=== PATIENT | male | born 1945 | race Caucasian/White ===

== ENCOUNTER 2016-12-11 11:34 | Emergency (ER) | payer MEDICARE, OTHER ==
[2016-12-11] MEDS ORDERED: SODIUM CHLORIDE 0.9% 1,000 ML IV ONE (13:19)
[2016-12-11] MEDS ORDERED: AZITHROMYCIN 250 MG TABLET PO STA (14:29)
[2016-12-11] MEDS ORDERED: AZITHROMYCIN 250 MG TABLET PO ONE (14:36)
== END 2016-12-11 14:44 | disposition home or self-care (01) ==
DX: R41.0 Disorientation, unspecified (principal); E86.0 Dehydration; T50.905A Adverse effect of unspecified drugs, medicaments and biological substances, initial encounter; J18.1 Lobar pneumonia, unspecified organism; I10 Essential (primary) hypertension
CPT/HCPCS: 36415; 71020; 80053; 81003; 83690; 83735; 85025; 99283; 99284; A9270

== ENCOUNTER 2017-02-02 12:27 | Outpatient (CLI) | payer MEDICARE ==
--- NOTE | 2017-02-02 14:37 | MRI Report ---
EXAM: MRI BRAIN WITHOUT CONTRAST EXAM DATE: 02/02/2017 01:15 PM. CLINICAL HISTORY: 71-year-old with history of pneumonia 2 months ago presenting with progressive renata ry loss and confusion COMPARISON: None. TECHNIQUE: Multiplanar, multisequence T1-weighted and fluid-sensitive MR sequences of the brain were performed. Sequences optimized for routine evaluation. Other: None. IV Contrast: None. FINDINGS: Brain Volume: Mild to moderate cortical volume loss Parenchyma/Dura: There is area of DWI signal hyperintensity seen within the posterior left frontal lo be (series 505, image 136) with no corresponding ADC signal hypointensity. There is associated T2/FLA IR signal hyperintensity at this level. No other areas of restricted diffusion seen to suggest acute infarct. There are moderate areas of encephalomalacia involving the left frontal lobe, left frontal o perculum, and right frontal operculum. Small area of encephalomalacia involving the right occipital l obe. There is moderate bilateral areas of T2/FLAIR signal hyperintensity seen. Old lacunar infarcts a re seen involving the left parietal centrum semiovale, left peguero radiata, right coronal radiata, bi lateral posterior christofer, and right thalamus. There is susceptibility artifact seen within the left charles s may represent old hemorrhagic blood products. No additional areas of abnormal parenchymal susceptib ility artifact seen. Pituitary: Normal. Ventricles/Cisterns: No abnormal extra-axial fluid collection/mass seen. There is ex echo dilatation of the frontal horn left lateral ventricle and body of left lateral ventricle. No evidence of hydroce phalus. Cisterns are patent. Fluid is seen within Meckel's caves. Visualized internal auditory canals appear clear. Sinuses: The visualized paranasal sinuses demonstrate minimal mucosal thickening of ethmoid air cells . Mastoid air cells and middle ear cavities are clear. Orbits: Normal. Bones: Normal. Other: The right intradural vertebral artery flow-void is not visualized. This may represent congenit al hypoplasia or chronic thrombosis. Otherwise the visualized major intracranial flow voids are maint ained. IMPRESSION: 1. No convincing evidence of acute infarct, intracranial hemorrhage, mass, or hydrocephalus. 2. Moderate areas of encephalomalacia involving the left frontal lobe, left temporal operculum, and r ight frontal operculum. Findings may be secondary to old chronic infarcts. 3. Small area of encephalomalacia involving the right occipital lobe. Finding may be secondary to old chronic infarct. 4. Moderate white matter changes including old chronic lacunar infarcts that likely represent sequela of chronic small vessel ischemic disease. 5. The right intradural vertebral artery flow-void is not visualized. This may represent congenital h ypoplasia or chronic thrombosis. If clinically indicated this finding can be further investigated wit h a CTA head and neck or MRA head and neck. RADIA The above findings were discussed with provider Vish Guillaume by Dr. Jamil Clay at 14 :32 hrs on 02/02/17. Referring Provider Line: [phone] SITE ID: [id number]
== END 2017-02-02 12:28 | disposition home or self-care (01) ==
LOC: DI 12:27
PROVIDERS: ATTEND Family Medicine
DX: G93.89 Other specified disorders of brain (principal); Z86.73 Personal history of transient ischemic attack (TIA), and cerebral infarction without residual deficits
CPT/HCPCS: 70551

== ENCOUNTER 2018-06-24 08:18 | Emergency (ER) | payer MEDICARE ==
[2018-06-24] MEDS ORDERED: IOPAMIDOL-300 100 ML VIAL ONE (08:33)
--- NOTE | 2018-06-24 08:46 | ED Physician Documentation ---
History of Present Illness - Stated complaint Stated Complaint: STROKE LIKE SX - Chief complaint Chief Complaint: Neuro - Additonal information Additional information: hx from pt and and EMR 73 male hx HTN and depression also prior MRI showing numerous prior infarcts encephalomalacia and R vertebral artery flow void - angio head and neck was recommended but does not know if that was done no blood thinners describes long time progressive diff with gait, small shuffling step, slow gait this AM he was up and about at his baseline and he froze holding on to the door and unable to move at all for several minutes she was eventually able to assist him to the chair he had no focal numbness weakness or speech abn or vision loss no recent falls no [employer] CP AP BP no fever cough NVD urinary sx no recent med changes Review of Systems Constitutional: denies: Fever, Chills Eyes: denies: Decreased vision Ears: denies: Loss of hearing, Ear pain Throat: denies: Sore throat Cardiac: denies: Chest pain / pressure, Palpitations Respiratory: denies: Dyspnea, Cough GI: denies: Abdominal Pain, Nausea, Vomiting, Diarrhea : denies: Dysuria Neurologic: reports: Generalized weakness. denies: Focal weakness, Numbness, Difficulty speaking, Syncope, Seizure, Altered mental status, Headache, Head injury Endocrine: denies: Easy bruising / bleeding Immunocompromised: denies: Immunocompromised PD PAST MEDICAL HISTORY - Past Medical History Cardiovascular: Hypertension - Past Surgical History Past Surgical History: Yes - Present Medications Home Medications: Ambulatory Orders Medication Instructions Recorded Confirmed Aspirin Chewable [[place] 81 mg PO DAILY 06/24/18 06/24/18 Aspirin] Atenolol/Chlorthalidone 1 each PO 06/24/18 [Atenolol-Chlorthal 50-25 Tb] Citalopram [CeleXA] 20 mg PO DAILY 06/24/18 06/24/18 Donepezil [Aricept] 5 mg PO DAILY 06/24/18 06/24/18 Lovastatin 40 mg PO 06/24/18 [place]-3/Dha/Epa/Fish Oil [Fish Oil 1 each PO 06/24/18 06/24/18 1,000 mg Softgel] - Allergies Allergies/Adverse Reactions: Allergies Allergy/AdvReac Type Severity Reaction Status Date / Time No Known Drug Allergies Allergy Verified 06/24/18 08:30 - Social History Does the pt smoke?: Yes Smoking Status: Current every day smoker Does the pt drink ETOH?: No Does the pt have substance abuse?: No - Immunizations Immunizations are current?: Yes PD ED PE NORMAL - Vitals Vital signs reviewed: Yes (normal) - General General: Alert and oriented X 3 - HEENT HEENT: Atraumatic, PERRL, EOMI - Neck Neck: Supple, no meningeal sign - Cardiac Cardiac: RRR - Respiratory Respiratory: No respiratory distress, Clear bilaterally - Abdomen Abdomen: Soft, Non tender - Derm Derm: Normal color - Extremities Extremities: No deformity - Neuro Neuro: Alert and oriented X 3, electric range servicer 2-12 intact, No motor deficit, No sensory deficit, Normal speech, Other (NIHSS at 0840 was zero, finger-nose and heel-chacon were normal bilaterally) Eye Opening: Spontaneous Motor: Obeys Commands Verbal: Oriented GCS Score: 15 Results - Vitals Vitals: Vital Signs - 24 hr 06/24/18 06/24/18 06/24/18 08:23 10:13 10:40 Temperature 36.6 C Heart Rate 93 91 91 Respiratory 21 15 18 Rate Blood Pressure 123/59 L 95/56 L 107/53 L O2 Saturation 98 96 97 06/24/18 11:15 Temperature 37.7 C H Heart Rate 87 Respiratory 17 Rate Blood Pressure O2 Saturation 97 Oxygen O2 Source Room air - EKG (time done) 0850 Rate: Rate (enter#) Rhythm: NSR, Other (best seen in II and V3 appears to be NSR with 1st degree block and prolonged QT) Intervals: 1st degree AVB, Prolonged QT Ischemia: Non specific changes Compare to prior EKG: Old EKG unavailable - Labs Labs: Laboratory Tests 06/24/18 06/24/18 06/24/18 08:31 08:46 08:46 WBC 12.6 H RBC 4.92 Hgb 15.0 Hct 43.9 MCV 89.3 MCH 30.5 MCHC 34.1 RDW 13.4 Plt Count 195 MPV 7.2 L Neut # (Auto) 11.9 H Lymph # (Auto) 0.5 L Morton # (Auto) 0.3 Eos # (Auto) 0.0 Baso # (Auto) 0.0 Absolute Nucleated RBC 0.00 Nucleated RBC % 0.0 Sodium 138 Potassium 3.3 L Chloride 97 L Carbon Dioxide 28 Anion Gap 13.0 BUN 23 H Creatinine 1.2 Estimated GFR (MDRD) 59 L Glucose 114 H POC Whole Bld Glucose 107 H Calcium 9.9 Troponin I Urine Color Urine Clarity Urine pH Ur Specific Loop Urine Protein Urine Glucose (UA) Urine Ketones Urine Occult Blood Urine Nitrite Urine Bilirubin Urine Urobilinogen Ur Leukocyte Esterase Ur Microscopic Review Urine Culture Comments 06/24/18 06/24/18 08:46 09:35 WBC RBC Hgb Hct MCV MCH MCHC RDW Plt Count MPV Neut # (Auto) Lymph # (Auto) Morton # (Auto) Eos # (Auto) Baso # (Auto) Absolute Nucleated RBC Nucleated RBC % Sodium Potassium Chloride Carbon Dioxide Anion Gap BUN Creatinine Estimated GFR (MDRD) Glucose POC Whole Bld Glucose Calcium Troponin I < 0.04 Urine Color DARK YELLOW Urine Clarity CLEAR Urine pH 7.[address] 1.015 Urine Protein NEGATIVE Urine Glucose (UA) NEGATIVE Urine Ketones NEGATIVE Urine Occult Blood NEGATIVE Urine Nitrite NEGATIVE Urine Bilirubin NEGATIVE Urine Urobilinogen 0.2 (NORMAL) Ur Leukocyte Esterase NEGATIVE Ur Microscopic Review NOT INDICATED Urine Culture Comments NOT INDICATED - Rads (name of study) CTH Radiology: See rad report (eddie frontal old infarcts L > R, no acute infarct, no bleed) CTA brain Radiology: See rad report (unremarkable, no aneurysm thrombosis or stenosis, dominant L vertebral, R vertebral is small caliber but not obstructed) CT neck Radiology: See rad report (mod to marked atherosclerosis arch and great vessels, mild to CCA bifurcation, KING 25% LICA 50%, dominant L vertebral, small R vertebral but patent) PD MEDICAL DECISION MAKING - ED course ED course: sx better CTH no acute bleed CT in general limited for acute infarct and cornelia for posterior regions (pt sx is ataxia) but since sx are better do not feel MRI emergenct no reversible cause for TIA CVA found - NRS not a fib so do not think needs emergenct echo, atherosclerosis but not > 50%, no aneurym AVM thrombosis etc honestly his sx sound like parkinsons as much as a TIA in any case he feels better his work up is reassuring he was able to road test with a walker s difficulty will dc to fup with PMD for neuro referral Departure - Departure Disposition: 01 Home, Self Care Clinical Impression: Ataxia, Prolonged QT interval Condition: Good Instructions: Dizziness Balance Probs Fainting Follow-Up: Vish Guillaume MD [Primary Care Provider] - Comments: The CT scans of your brain and neck showed old strokes - but no new strokes. Also no bleeding or tumors. You do have atherosclerosis plaque build up in some of the major neck arteries but none are dangerously blocked at this time. And your heart was in a regular rhythm for many hours making embolic blood clots from your heart to the brain unlikely Your labs were fine too. And your symptoms have resolved I am not sure if this was a TIA or not - the balance part of the brain in the back of the head and can be difficult to image even with a CT scan. Many of the chronic symptoms you describe are concerning for Parkinson's disease - I suggest you have your PMD refer you to a neurologist for further evaluation Also your EKG today showed some electric delays - one is called a prolonged QT and it is important that you remember this as one of your medical problems because future providers need to be very careful what medication they prescribe for you or this could be made worse and cause a serious heart arrhythmia Please use a walker when moving about to help prevent any falls Discharge Date/Time: 06/24/18 11:57
[2018-06-24 08:53] LABS: BASOPHILS % (AUTO) 0.1 %; LYMPHOCYTES # (AUTO) 0.5 10^3/uL (1.5-3.5); LYMPHOCYTES % (AUTO) 3.7 %; MEAN CORPUSCULAR HEMOGLOBIN 30.5 pg (27.0-31.0); MEAN CORPUSCULAR HGB CONC 34.1 g/dL (32.0-36.0); MEAN CORPUSCULAR VOLUME 89.3 fL (80.0-94.0); MEAN PLATELET VOLUME 7.2 fL (7.4-11.4); MONOCYTES # (AUTO) 0.3 10^3/uL (0.0-1.0); MONOCYTES % (AUTO) 2.1 %; NEUTROPHILS # (AUTO) 11.9 10^3/uL (1.5-6.6); NEUTROPHILS % (AUTO) 94.1 %; PLT - PLATELET COUNT 195 10^3/uL (130-450); RED BLOOD COUNT 4.92 10^6/uL (4.70-6.10); RED CELL DISTRIBUTION WIDTH 13.4 % (12.0-15.0); WHITE BLOOD COUNT 12.6 x10^3/uL (4.8-10.8)
[2018-06-24 09:02] LABS: CALCIUM 9.9 mg/dL (8.5-10.3); CREATININE 1.2 mg/dL (0.6-1.2)
[2018-06-24] MEDS ORDERED: IOPAMIDOL-300 100 ML VIAL IVP ONE (09:43)
--- NOTE | 2018-06-24 09:46 | CT Report ---
Reason: ataxia Procedure Date: 06/24/2018 Accession Number: [id number] / [id number] Procedure: CT - Head W/O Stroke Protocol CPT Code: FULL RESULT: EXAM: CT HEAD EXAM DATE: 06/24/2018 09:11 AM. CLINICAL HISTORY: Ataxia. COMPARISON: Brain without contrast 02/02/2017 1:25 PM. TECHNIQUE: Multiaxial CT images were obtained from the foramen magnum to the vertex. Reformats: Sagittal and coronal. IV contrast: None. In accordance with CT protocol optimization, one or more of the following dose reduction techniques were utilized for this exam: automated exposure control, adjustment of mA and/or KV based on patient size, or use of iterative reconstructive technique. FINDINGS: Parenchyma: Cystic encephalomalacia is seen in the lateral frontal lobes bilaterally greater on the left. This is consistent with sequela of old infarct. This is unchanged. Extraaxial Spaces: Normal for age. No subdural or epidural collections identified. Ventricles: Normal in size and position. Sinuses and Orbits: Imaged paranasal sinuses, orbits, and mastoids show no significant abnormality. Bones: No evidence of fracture or calvarial defect. Other: None. IMPRESSION: 1. No acute intracranial abnormality. 2. Cystic encephalomalacia in the lateral frontal lobes bilaterally, greater on the left. This is consistent with sequela of old infarct. This is unchanged. Critical test: Findings are discussed with referring ER physician on 06/24/2018 at 0943 hrs. RADIA
[2018-06-24 10:17] LABS: BILIRUBIN,URINE NEGATIVE (NEGATIVE); GLUCOSE, URINE (UA) NEGATIVE (NEGATIVE); KETONES,URINE (UA) NEGATIVE (NEGATIVE); LEUKOCYTE ESTERASE, URINE NEGATIVE (NEGATIVE); NITRITE,URINE NEGATIVE (NEGATIVE); OCCULT BLOOD,URINE NEGATIVE (NEGATIVE); PROTEIN,URINE NEGATIVE (NEGATIVE); UROBILINOGEN,URINE 0.2 (NORMAL) E.U./dL (NORMAL)
[2018-06-24 10:28] LABS: CLARITY,URINE CLEAR (CLEAR)
--- NOTE | 2018-06-24 11:15 | CT Report ---
Reason: neuro sx, ataxia, abn prior MRI, angio rec Procedure Date: 06/24/2018 Accession Number: [id number] / [id number] Procedure: CT - Head Angio CPT Code: FULL RESULT: EXAM: CT ANGIOGRAM HEAD AND NECK. CT SCAN HEAD WITH CONTRAST. EXAM DATE:06/24/2018 09:11 AM. CLINICAL HISTORY:Neuro sx, ataxia, abn prior MRI, angio rec. COMPARISON:CT scan of the head without contrast same time 06/24/2018. CT scan of the head 02/02/2017. TECHNIQUE: Routine axial helical CTA imaging was performed from the aortic arch through the [place] of [place]. Routine axial CT imaging of the head was performed following contrast administration. Reconstructions: Routine multiplanar 3D MIP reconstructions. IV contrast: Isovue 300 80 mL. NASCET Criteria are used for stenosis measurements. In accordance with CT protocol optimization, one or more of the following dose reduction techniques were utilized for this exam: automated exposure control, adjustment of mA and/or KV based on patient size, or use of iterative reconstructive technique. FINDINGS: CT SCAN HEAD POSTCONTRAST: (See report of noncontrast CT scan of the head performed same time.) No abnormal intracranial enhancement. CT ANGIOGRAM EXTRACRANIAL CIRCULATION: Moderate tortuosity and marked calcification of the aortic arch is evident. Moderate tortuosity and calcification of the great vessels off the arch is seen. 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 Great vessels are patent and unremarkable. Right Carotid: The common carotid, internal carotid, and external carotid arteries are widely patent. No dissection. Moderate atherosclerotic calcification is seen in the CCA bifurcation and proximal ICA. Mild, 25%, stenosis is seen in the post bulbar ICA. Left Carotid: The common carotid, internal carotid, and external carotid arteries are widely patent. No dissection. Moderate atherosclerotic calcification is seen in the CCA bifurcation and proximal ICA moderate, 50%, stenosis is seen in the post bulbar ICA. Vertebrals: The vertebrobasilar system shows no stenosis, dissection, aneurysm, or significant atherosclerotic disease. The left vertebral artery is dominant, almost the same caliber as the ICA. The right vertebral artery is pinpoint and diffusely small in caliber. CT ANGIOGRAM INTRACRANIAL CIRCULATION: Unremarkable No significant stenoses or aneurysms of the visualized vessels. Mild tortuosity and calcification of the cavernous and proximal supracavernous ICA is seen bilaterally. The left vertebral artery is dominant forming the basilar artery. The left PICA arises from the distal V4 segment and is dominant and unremarkable. The right vertebral artery is small in caliber and terminates as a small caliber right PICA. The basilar artery and bifurcation is patent and unremarkable. Note is made of a small, 1.4 mm, infundibulum seen in the C7 supracavernous segment of the left ICA. This is proximal to the anterior choroidal artery and consistent with P-comm artery origin. The left P-comm is not well seen. Dural sinuses are not well evaluated on CT angiogram due to timing of contrast bolus. Dural sinuses are patent on postcontrast head CT. Other: Mild diffuse scattered interstitial bullous changes seen in the visualized upper lung zones. No consolidation. The muscle and fascial planes of the neck are unremarkable. No lytic or blastic bony lesions are seen. Mild to moderate spondylosis is noted throughout the cervical spine. IMPRESSION: CT SCAN HEAD POSTCONTRAST: (See report of noncontrast CT scan of the head performed same time.) 1. No abnormal intracranial enhancement. CT ANGIOGRAM NECK: 1. Moderate to marked atherosclerotic tortuosity and calcification involving the aortic arch and great vessels off the arch. 2. Mild atherosclerotic change in the CCA bifurcation bilaterally. -Right ICA with mild, 25%, stenosis in the post bulbar region. -Left ICA with moderate, 50%, stenosis in the post bulbar region. 3. The left vertebral artery is dominant forming the basilar artery. Left vertebral artery has its origin off the aortic arch. 4. The right vertebral artery is diffusely small in caliber throughout its course and likely terminates as small caliber right PICA. CT ANGIOGRAM HEAD: 1. Unremarkable CTA of the head. No aneurysm. No significant stenosis. 2. The left vertebral artery is dominant forming the basilar artery. 3. The right vertebral artery is small in caliber and likely terminates as small caliber right PICA. Critical test: Findings are discussed with referring treating physician on 06/24/2018 at 1103 hrs. RADIA
[2018-06-24 11:30] VITALS: BP 107/53
== END 2018-06-24 11:57 | disposition home or self-care (01) ==
LOC: ED 08:18
DX: R27.0 Ataxia, unspecified (principal); I45.81 Long QT syndrome; I44.0 Atrioventricular block, first degree; I25.2 Old myocardial infarction; I10 Essential (primary) hypertension; I70.8 Atherosclerosis of other arteries; Z79.82 Long term (current) use of aspirin; F17.200 Nicotine dependence, unspecified, uncomplicated
CPT/HCPCS: 36415; 70450; 70496; 70498; 80048; 81003; 84484; 85025; 93005; 99284; Q9967; 81001; 87086

== ENCOUNTER 2018-07-11 08:00 | Outpatient (CLI) | payer MEDICARE ==
[2018-07-11 15:12] LABS: BASOPHILS # (AUTO) 0.1 10^3/uL (0.0-0.1); BASOPHILS % (AUTO) 0.8 %; EOSINOPHILS # (AUTO) 0.1 10^3/uL (0.0-0.7); EOSINOPHILS % (AUTO) 1.3 %; HGB - HEMOGLOBIN 10.6 g/dL (14.0-18.0); LYMPHOCYTES # (AUTO) 1.4 10^3/uL (1.5-3.5); LYMPHOCYTES % (AUTO) 18.4 %; MEAN CORPUSCULAR HEMOGLOBIN 30.3 pg (27.0-31.0); MEAN CORPUSCULAR HGB CONC 34.3 g/dL (32.0-36.0); MEAN CORPUSCULAR VOLUME 88.5 fL (80.0-94.0); MEAN PLATELET VOLUME 7.9 fL (7.4-11.4); MONOCYTES # (AUTO) 0.4 10^3/uL (0.0-1.0); MONOCYTES % (AUTO) 5.7 %; NEUTROPHILS # (AUTO) 5.8 10^3/uL (1.5-6.6); NEUTROPHILS % (AUTO) 73.8 %; PLT - PLATELET COUNT 433 10^3/uL (130-450); RED BLOOD COUNT 3.51 10^6/uL (4.70-6.10); RED CELL DISTRIBUTION WIDTH 14.1 % (12.0-15.0); WHITE BLOOD COUNT 7.8 x10^3/uL (4.8-10.8)
[2018-07-11 18:35] LABS: CALCIUM 8.4 mg/dL (8.5-10.3); CREATININE 1.2 mg/dL (0.6-1.2)
== END 2018-07-11 08:01 | disposition home or self-care (01) ==
LOC: LAB.R 08:00
DX: R79.89 Other specified abnormal findings of blood chemistry (principal); R78.81 Bacteremia
CPT/HCPCS: 80048; 85025

== ENCOUNTER 2018-07-17 21:37 | Outpatient (CLI) | payer MEDICARE | END 2018-07-17 23:59 | disposition home or self-care (01) | LOC: LAB.R 21:37 | PROVIDERS: ATTEND Family Medicine | DX: A04.72 Enterocolitis due to Clostridium difficile, not specified as recurrent (principal) | CPT/HCPCS: 87493 ==

== ENCOUNTER 2018-07-22 15:00 | Outpatient (CLI) | payer MEDICARE ==
--- NOTE | 2018-07-22 15:06 | CONSULTATION NOTE ---
Palliative Care Consultation - Referral Referring Provider: Ez Rainey Time of Visit: 07/22/2018. 10:40 - 12:10 Referral setting: Home (Seen in home setting due to taxing and considerable effort required to leave the home secondary to declining functionality and limited mobility, etiology unknown.) Referral Reason: Debility - Information Sources Records reviewed: Previous records reviewed History/Review of Systems obtained from: Patient, Family Exam limitations: Clinical condition (cognitive, short-term memory deficits) - History of Present Illness Brief History of Present Illness: Thank you, Dr. Guillaume, for asking the palliative care consult service to be involved in the care of your patient. I am asked to provide support regarding a recent decline in functional status and advance care planning. 73-year-old man with a history of HTN and depression, h/o CVA, and chronic symptoms concerning for Parkinson's disease. He was hospitalized for bacteremia 06/24/18, at [facility] several weeks for rehabilitation, and discharged home on 07/18. He has been referred to Palliative Care services and to Home Health for PT and bath aid. Medical history: Dementia; severe malnutrition; failure to thrive, HTN; ataxia; s/p bacteremia; anxiety; h/o CVA; HLD; prolonged QT interval; symptoms concerning for Parkinson's; GERD; erectile dysfunction; actinic keratosis. -Present at today's visit is patient, his Theresa and their daughter Abbey. -Patient was discharged earlier this week from [facility] after several weeks of therapy following his hospitalization for Group B strep bacteremia, severe dehydration, hypokalemia, acute kidney injury, and severe malnutrition. He completed his IV antibiotics at [facility] before he was discharged home -MRI in the ED revealed "old" CVAs. -Patient has hesitant, slow gait with small shuffling steps. Family also reports episodes of what they call "freezing." -He had a "freezing" episode that triggered his trip to [facility] ED, they couldn't find anything an sent him home. -[facility] did suggest to the family to have his PCP refer him to a neurologist for further evaluation of chronic symptoms that are concerning for Parkinson's. -Once at home after the ED visit, he walked outside to the mailbox, collapsed and was found by a neighbor. -They didn't take him back to [facility], instead they took him to [facility] where he was admitted and treated for bacteremia and severe dehydration. -He was hospitalized at [facility] 06/25/18 - 07/06/18, and discharged to [facility] for rehab and IV antibiotics. -Per the spouse, they were unable to find the source of the bacteremia. -The most recent "freeze" occurred last evening. The patient became weak and collapsed with his eyes glazed over. This episode severely frightened his daughter who thought he was going to . -Neurology at [facility] evaluated him, thought that seizure disorder was unlikely based on history and lack of epileptiform pattern on EEG. [facility] concerned for possible Parkinson's disease, but further workup required. -Neither patient nor family wants further medical testing. -Today's visit is somewhat chaotic with the spouse loudly and somewhat frenetically talking, commenting, answering questions and perseverating. She appears stressed and anxious. -The family admits feeling overwhelmed with three healthcare visits scheduled for today: my visit, followed by Home Health PT, and Home Health bath aid. -We discussed palliative care and Hospice care and what they are, I provided education and anticipatory guidance. -We also discussed goals of care and I had to slowly draw out the patient to answer more questions and open up some. He tends to stay quiet, staring straight ahead and he mostly defers to his , who tends to jump in and respond and comment. -The patient stopped driving about 3 years ago due to slowed reaction time. -He has slowly been declining in functionality, and has ataxia. -Family has noted a significant worsening since coming home from [facility]. -He requires more help and assistance with ADLs, transferring, and ambulating. His is now feeding him because otherwise meals take a very long time. -He lost 9 lbs in the hospital. They report he was 117 lbs at [facility]. He was 121 lbs at home on , the day after he discharged from [facility]. They think his appetite might have improved at home, although he's always had a low appetite. -Height 5'7.5", weight 120 lbs, BMI 18.5. Normal weight range 119.9 - 162 lbs. Medical/Surgical History - Past Medical History Cardiovascular: reports: Hypertension, High cholesterol Neuro: reports: None, Dementia, CVA (history of), Parkinson's (symptoms are concerning for Parkinson's but family does not want to pursue workup) Psych: reports: Anxiety MRSA Hx?: No - Substance History Tobacco Details: Cigarettes (Smoker, 08/17 PPD 1970 - 2017. He has not smoked sin ce hospitalization in June. Uses nicotine patch.) Social History - Living Situation Living arrangement: At home Living Situation: With spouse/s.o. Support System: He lives at home with his of 50 years, Theresa. 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 Their son lives on [facility] in [place]. Their daughter Abbey lives in [place]. Theresa, his , was dx'd with [facility] cancer end 2016, with treatment from 2016 through December 2017. She says she got the "all clear" in April 2018. Family History - Family History Family History Comment/Other: Non contributory. Medications/Allergies - Medications Home Medications: Ambulatory Orders Medication Instructions Recorded Confirmed Aspirin Chewable [[place] 81 mg PO DAILY 06/24/18 07/22/18 Aspirin] Citalopram [CeleXA] 20 mg PO DAILY 06/24/18 07/22/18 Donepezil [Aricept] 5 mg PO DAILY 06/24/18 07/22/18 Lovastatin 40 mg PO QPM 06/24/18 07/22/18 Shipman-3/Dha/Epa/Fish Oil [Fish Oil 1 each PO DAILY 06/24/18 07/22/18 1,000 mg Softgel] Atenolol 25 mg PO DAILY 07/22/18 07/22/18 Ferrous Gluconate 240 mg PO DAILY 07/22/18 07/22/18 Multivitamin [Multiple Vitamins] 1 tab PO DAILY 07/22/18 07/22/18 Potassium Chloride 20 meq PO DAILY 07/22/18 07/22/18 Spironolactone 50 mg PO BID 07/22/18 07/22/18 - Allergies Allergies/Adverse Reactions: Allergies Allergy/AdvReac Type Severity Reaction Status Date / Time No Known Drug Allergies Allergy Verified 06/24/18 08:30 Review of Systems - Constitutional Constitutional: reports: Fatigue, Weakness, Poor appetite, Weight loss (-Height 5'7.5", weight 120 lbs, BMI 18.5. Normal weight range 119.9 - 162 lbs. Family reports he weighed 117 lbs at [facility]. He has lost 23 lbs since 07/13/17.), Other (always cold) - Ears, Nose & Throat Ears, Nose & Throat: denies: Hearing loss - Cardiovascular Cardiovascular: reports: Exertional dyspnea, Decr. exercise tolerance. denies: Chest pain, Edema - Respiratory Respiratory: reports: SOB with exertion - Gastrointestinal Gastrointestinal: reports: Diarrhea, Poor appetite. denies: Constipation (likely from antibiotics) - Genitourinary Genitourinary: reports: Incontinence (bowel and bladder) - Musculoskeletal Musculoskeletal: reports: Stiffness, Muscle weakness, Assistive devices (walker), Transfer issues (requires assistance), Other (denies pain) - Neurological Neurological: reports: Memory problems, Pre-existing deficit, Abnormal gait, Other (has "freeze" episodes) Physical Exam - Vital Signs Temperature: 96.5 F Pulse Rate: 86 O2 Saturation: 99 (room air) Blood Pressure: 100/66 (arm cuff) - Physical Exam General Appearance: positive: No acute distress, Lethargic ENT: positive: No signs of dehydration Neck: positive: Trachea midline Cardiovascular: positive: Regular rate & rhythm, No murmur, No gallop Respiratory: positive: Chest non-tender, No respiratory distress, Diminished throughout (very diminished). negative: Wheezes, Rales, Rhonchi Abdomen: positive: Non-tender, Soft, Nml bowel sounds Skin: positive: Dryness Extremities: positive: No pedal edema Neurologic/Psychiatric: positive: Disoriented to time, Flat affect Palliative Care - POLST Patient has POLST: Yes POLST Status: DNR, Comfort Measures Pain: No pain Tiredness/Fatigue: Moderate (4-6) Drowsiness/Sedation: Moderate (4-6) Nausea: None Dyspnea: Comment (winded climbing a few steps) Anorexia: Moderate (4-6) Constipation: No Performance Status: worsening feeds him requires assistance with all ADLs incontinent of bowel and bladder unsteady, slow, shuffling gait, precarious balance - Palliative Care Discussion: Patient is very clear that he doesn't want to go to the hospital again, he doesn't want further tests or medical interventions. He has cognitive deficits and difficulty processing, but has a level of understanding of his condition and states that he doesn't want to . We discussed at length with daughter, and patient, when he could participate and follow, his goals and he felt comfort care was right, again because he wants to avoid going back to hospital. Spouse says she supports whatever her wants. He eventually left the room to go lie down, and she spoke about his doctor told her he is dying but no known reason. She appears to accept this, and so does his daughter, though she became teary. She is more certain in her feeling that comfort care and hospice is what the patient wants. The spouse wants more time to think about Hospice. At any rate, Home Health is coming later today. The patient is back home now, away from facility food, and it appears he may already have gained a pound or two. His will continue to feed him, they have Ensure. and they do want to try to minimize the interruptions of the medical world in their lives. I have asked the to monitor his weight 1-2x per week. [facility] recommended hiring additional caregiver help for several hours per day, but right now spouse feels she can handle care giving. Her daughter is helping too. The spouse has spoken with [facility] [employer]; she doesn't feel she needs palliative care SW at this time. Impression and Recommendations - Palliative Care Impression: 73-year-old man with a history of HTN and depression, h/o CVA, and chronic symptoms concerning for Parkinson's disease. He was hospitalized for bacteremia 06/24/18, at [facility] several weeks for rehabilitation, and discharged home on 07/18. He is declining functionally and cognitively and has been referred to Palliative Care services and to Home Health for PT and bath aid. Family and patient want comfort care and spouse would like time to think about transitioning him to Hospice. Palliative Care will provide oversight and support and monitor appropriateness for Hospice. Recommendations/Counseling Done: Bacteremia: Patient completed IV antibiotics at [facility] and was discharged home earlier this week. He has looses stools, likely from the antibiotic regimen, and bowel movements have shown improvement. Severe malnutrition: Family reports he lost weight during hospitalization, was 117 lbs at [facility] and slightly increased to 121 lbs Wednesday, after his discharge from [facility]. His BMI is 18.5 (Ht 5'7.5%, Wt 120 lbs). Spouse feeds him and provides Ensure, asked family to weigh him 1-2 times per week. Will monitor. Neurological disorder: His symptoms are concerning for Parkinson's but family and patient do not want to undergo testing and medical appointments to find out. He wants to stay out of the hospital and remain as comfortable as possible. Patient has episodes of freezing, but from description by daughter, it could be a seizure (though he lacked epileptiform pattern on EEG). Provided reassurance and support. Advance care planning: Goals of care discussed at length with patient, , and daughter, POLST was filled out and signed (DNR and comfort care). Patient is not ready to and he states his desire to live, while also being very clear he doesn't want hospitalization or invasive and intrusive medical procedures. Home Health PT and Health Aid admitted him today. For future visits do not book on same day as Home Health visits. Also discussed at length his appropriateness for transitioning to Hospice. It's borderline. His wants to think about it some more. Monitor his weight and progress (or lack of it) with PT. Follow up 1-2 weeks. Time Spent: 90 minutes were spent with more than 50% of the time spent on counseling, education, anticipatory guidance, and coordination of care regarding functional deficits, palliative care, and hospice.
== END 2018-07-22 15:01 | disposition home or self-care (01) ==
LOC: PC 15:00
PROVIDERS: ATTEND Nurse Practitioner
DX: Z51.5 Encounter for palliative care (principal); E43 Unspecified severe protein-calorie malnutrition; R29.90 Unspecified symptoms and signs involving the nervous system; F32.9 Major depressive disorder, single episode, unspecified; R27.0 Ataxia, unspecified; F41.9 Anxiety disorder, unspecified; Z87.891 Personal history of nicotine dependence; Z79.82 Long term (current) use of aspirin; Z66 Do not resuscitate
CPT/HCPCS: 99345

== ENCOUNTER 2018-08-15 12:10 | Outpatient (CLI) | payer MEDICARE ==
--- NOTE | 2018-08-15 17:12 | CONSULTATION NOTE ---
Palliative Care Follow Up - Referral Referring Provider: Dr Vish Guillaume Time of Visit: 08/15/2018. 12:10 - 12:55 Referral setting: Home (Seen in home setting due to taxing and considerable effort required to leave the home secondary to declining functionality and gray ited mobility, etiology unknown.) - Information Sources Records reviewed: Previous records reviewed History/Review of Systems obtained from: Patient, Family Exam limitations: Clinical condition (Short term memory deficits; unreliable historian.) - History of Present Illness Update Brief HPI Update: 73-year-old man with a history of HTN and depression, h/o CVA, and chronic symptoms concerning for Parkinson's disease. He was hospitalized for bacteremia 06/24/18, treated with IV antibiotics which were continued at [facility] for several weeks, and discharged home on 07/18/18. He is also currently on Home Health for PT, RN for wound care, and bath aid. Medical history: Dementia; severe malnutrition; failure to thrive, HTN; ataxia; s/p bacteremia; anxiety; h/o CVA revealed by MRI; HLD; prolonged QT interval; symptoms concerning for Parkinson's; GERD; erectile dysfunction; actinic keratosis Patient had been in a general, slow decline that exacerbated earlier this month with his admission to hospital for bacteremia. However in this past week he has shown improvement with getting out of bed, more mobility, improved cognition (though still confused). He and his report he is eating more and has good appetite. However, RN notes record he is 115 lbs on 08/11. My records show he was previously between 117 and 120. Today he was not able to use the electronic home scale property so we weren't able to obtain a weight. Spouse says at one point he was 108 lbs, this is questionable. He is more alert, cognition appears improved although still short-term memory deficits and baseline confusion. Able to self transfer, and is ambulatory around the house. He is not using the walker consistently. Wasn't able to coordinate and move quickly enough onto the scale in the proper manner, despite repeated attempts and explanations. Unable to follow directions well. I had ordered discontinuing several medications on 07/26: doepezil, atenoll, lovstatin and [place] 3 fish oil. was confused, so reiterated these orders 08/05. Spouse has not been giving him these medications since then, and he looks more alert and responsive. We spent quite a bit of time reconciling the medications and helping the spouse sort through all her bottles and organize them. He is almost finished with his potassium chloride, which was started for hypokalemia. He's also about finished with spironolactone. I did write a new script for the spironolactone (one month's supply), but not a refill for potassium. He is seeing his PCP next week; I gave the spouse written instructions to ask the PCP about continuing the potassium and spironolactone. He might want to order some labs. Patient is not currently smoking; is not using nicotine 14mg patches. HH RN is managing his sacral stage II wound. Social History - Living Situation Living arrangement: At home Living Situation: With spouse/s.o. Support System: He lives at home with his of 50 years, Theresa. 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 Their son lives on [facility] in [place]. Their daughter Abbey lives in [place]. Theresa, his , was diagnosed with breast cancer end 2016, with treatment from Jul 2017 through December 2017. She says she received the "all clear" in April 2018. Medications/Allergies - Medications Home Medications: Ambulatory Orders Medication Instructions Recorded Confirmed Aspirin Chewable [[place] 81 mg PO DAILY 06/24/18 08/15/18 Aspirin] Citalopram [CeleXA] 20 mg PO DAILY 06/24/18 08/15/18 Ferrous Gluconate 240 mg PO DAILY 07/22/18 08/15/18 Multivitamin [Multiple Vitamins] 1 tab PO DAILY 07/22/18 08/15/18 Potassium Chloride 20 meq PO DAILY 07/22/18 07/22/18 Spironolactone 50 mg PO BID 07/22/18 08/15/18 - Allergies Allergies/Adverse Reactions: Allergies Allergy/AdvReac Type Severity Reaction Status Date / Time No Known Drug Allergies Allergy Verified 06/24/18 08:30 Review of Systems - Constitutional Constitutional: reports: Fatigue, Weakness (but improved), Poor appetite (improved appetite), Weight loss (115 lbs on 08/11/18 per [facility] RN. Was 117-120 lbs. 120 lbs is BMI 18.5. Weight loss of 23 lbs since Jun 2017.) - Ears, Nose & Throat Ears, Nose & Throat: denies: Hearing loss - Cardiovascular Cardiovascular: reports: Decr. exercise tolerance - Respiratory Respiratory: denies: SOB with exertion - Gastrointestinal Gastrointestinal: reports: Good appetite (recently improving, but weight loss) - Genitourinary Genitourinary: reports: Incontinence (bowel and bladder) - Musculoskeletal Musculoskeletal: reports: Assistive devices (walker), Transfer issues (self transfers from sofa) - Neurological Neurological: reports: General weakness, Memory problems, Abnormal gait, Other ("freeze" episodes) - Endocrine Endocrine: reports: Intolerance to cold - Other Findings Other Findings: Limited ROS. Physical Exam - Vital Signs Temperature: 96.3 F Pulse Rate: 86 O2 Saturation: 96 (room air) Blood Pressure: 105/73 (wrist cuff) - Physical Exam General Appearance: positive: No acute distress, Alert Eyes Bilateral: positive: EOMI, No lid inflammation, Conjunctivae nml, No scleral icterus ENT: positive: Dry mucous membranes Neck: positive: Trachea midline Cardiovascular: positive: Regular rate & rhythm, No murmur, No gallop Respiratory: positive: Chest non-tender, No respiratory distress, Diminished throughout (significantly). negative: Wheezes, Rales, Rhonchi Skin: positive: Dryness Extremities: positive: No pedal edema Neurologic/Psychiatric: positive: Mood/affect nml, Disoriented to time Palliative Care - POLST Patient has POLST: Yes POLST Status: DNR, Comfort Measures Pain: No pain Tiredness/Fatigue: Mild (1-3) Drowsiness/Sedation: None Anxiety: None Dyspnea: None Anorexia: Weight loss (appetite improving, per pt and spouse) Performance Status: more alert and mobile, less confused incontinent of bowel and bladder gait still unsteady but improved today - Palliative Care Discussion: Patient confirmed goals of care are that he wants to avoid hospital and diagnostic testing is very clear that he doesn't want to go to the hospital again, he doesn't want further tests or medical interventions. Have previouslydiscussed Hospice with spouse and daughter at my initial visit. Spouse at that time wanted to think about it and see how he progress. Recently the patient has shown improvement, possibly related to discontinuing some of his medications (atenolol, donepezil and lovastatin) is doing somewhat better. The patient is relieved that he is taking less pills. They will follow up with his PCP at their scheduled visit next week, and will inquire about spironolactone and potassium in particular. Impression and Recommendations - Palliative Care Impression: 73-year-old man with a history of HTN and depression, h/o CVA, and chronic symptoms concerning for Parkinson's disease. He was hospitalized for bacteremia in June, at [facility] several weeks for rehabilitation, and discharged home on 07/18/18. He has been in general decline cognitively and functionally, but with recent improvement in mobility, alertness and appetite, according to . Palliative Care will continue to monitor and provide oversight. Home Health RN is managing wound care, bath aid is continuing, and PT will likely discharge him soon. Recommendations/Counseling Done: General weakness: Patient still weak, but improved recently, is more mobile around house and doing better on the stair. Gait improved but still shaky and weak. Unable to obtain a weight for the patient today due to patient's confusion and inability to stand correctly on the home scale. Discontinued medications from a few weeks ago: atenolol, lovastatin, donepezil, [place] 3 fish oil. Reconfirmed the medicine D/C with spouse and helped her organize his remaining medications. He appears more lucid and alert than the initial Palliative Care visit. Severe malnutrition: Most recent weight was on 08/11/18, 115 lbs. He was around 117-120 lbs (BMI at 120 lbs is 18.5) in [facility], though reports he weighed less than that at one point. I do not have confirmation of that from medical chart. and patient report that his appetite has improved and he is eating better. Continue to monitor weight. HTN: Atenolol was stopped around 08/05, perhaps sooner, it is unclear from spouse. Today his BP today is in the normal range: 110/73, HR is 86. h/o hypokalemia: Currently on spironolactone 50mg BID, though nearly out of tablets. [facility] provided script for another 30 days' supply and provided written instructions to to follow up with PCP at their visit next week; the PCP may want to run labs, to decide whether to D/C or continue spironolactone. The patient is about to run out of potassium 20meq, but did not write a refill; PCP to follow up. Neurological disorder: Of unknown etiology. Symptoms are concerning for Parkinson's, but family and patient have elected not to undergo testing and diagnostics. Advance care planning: Goals of care confirmed: patient wants to avoid burdensome medical interventions, prefers no hospitalization, wants comfort care. Will continue HH for wound care and bathing care. PT will likely discharge him soon. Follow up as needed. Time Spent: 45 minutes were spent with more than 50% of the time spend on counseling education, and coordination of care.
== END 2018-08-15 12:11 | disposition home or self-care (01) ==
LOC: PC 12:10
PROVIDERS: ATTEND Nurse Practitioner
DX: Z51.5 Encounter for palliative care (principal); R53.1 Weakness; R26.81 Unsteadiness on feet; E43 Unspecified severe protein-calorie malnutrition; I10 Essential (primary) hypertension; E87.6 Hypokalemia; R29.5 Transient paralysis; F03.90 Unspecified dementia, unspecified severity, without behavioral disturbance, psychotic disturbance, mood disturbance, and anxiety; Z79.899 Other long term (current) drug therapy; Z87.891 Personal history of nicotine dependence; Z66 Do not resuscitate; Z86.73 Personal history of transient ischemic attack (TIA), and cerebral infarction without residual deficits
CPT/HCPCS: 99349

== ENCOUNTER 2018-09-03 18:10 | Outpatient (CLI) | payer MEDICARE | END 2018-09-03 18:11 | disposition E | LOC: EMS 18:10 | PROVIDERS: ATTEND Surgery ==